=== PATIENT | male | born 1980 | race Caucasian/White ===

== ENCOUNTER 2017-04-02 18:05 | Emergency (ER) | payer OTHER ==
[2017-04-02] MEDS ORDERED: Bacitracin/Neomycin/Polymyxin B Oint 0.9 GM U/D Packet TOP ONE (19:01)
--- NOTE | 2017-04-02 19:02 | EDM.PDOC ---
ED HPI GENERAL MEDICAL PROBLEM - General Chief Complaint: Laceration Stated Complaint: L) thumb cut Time Seen by Provider: 04/02/17 18:36 Source of Information: Reports: Patient History Limitations: Reports: No Limitations - History of Present Illness INITIAL COMMENTS - FREE TEXT/NARRATIVE: Patient is a 36-year-old who cut himself with a knife on his left thumb whie working [employer]. 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 (see below) Other Treatments CELL REPAIRER: pressure held - Related Data Allergies Allergy/AdvReac Type Severity Reaction Status Date / Time No Known Allergies Allergy Verified 04/02/17 18:08 Home Meds: Home Meds Cephalexin [Keflex] 500 mg PO Q6HR 7 Days #16 cap 04/02/17 [Rx] Social & Family History - Tobacco Use Smoking Status *Q: Former Smoker Years of Tobacco use: 16 Packs/Tins Daily: 1 Used Tobacco, but Quit: Yes Month Tobacco Last Used: 2012 Second Hand Smoke Exposure: No - Caffeine Use Caffeine Use: Reports: Coffee, Soda - Recreational Drug Use Recreational Drug Use: No ED ROS GENERAL - Review of Systems Review Of Systems: See Below Constitutional: Reports: No Symptoms HEENT: Reports: Contact Lenses Respiratory: Reports: No Symptoms Cardiovascular: Reports: No Symptoms Endocrine: Reports: No Symptoms GI/Abdominal: Reports: No Symptoms : Reports: No Symptoms Musculoskeletal: Reports: No Symptoms Skin: Reports: Wound (Left hand laceration) Neurological: Reports: No Symptoms Psychiatric: Reports: No Symptoms Hematologic/Lymphatic: Reports: No Symptoms Immunologic: Reports: No Symptoms ED EXAM, SKIN/RASH Exam: See Below Exam Limited By: No Limitations General Appearance: Alert, WD/WN, No Apparent Distress Eye Exam: Bilateral Eye: EOMI, PERRL Ears: Normal External Exam, Normal Canal, Hearing Grossly Normal, Normal TMs Nose: Normal Inspection, Normal Mucosa, No Blood Throat/Mouth: Normal Inspection, Normal Lips, Normal Teeth, Normal Gums, Normal Oropharynx, Normal Voice, No Airway Compromise Head: Atraumatic, Normocephalic Neck: Normal Inspection, Supple, Non-Tender, Full Range of Motion Respiratory/Chest: No Respiratory Distress, Lungs Clear, Normal Breath Sounds, No Accessory Muscle Use, Chest Non-Tender Cardiovascular: Normal Peripheral Pulses, Regular Rate, Rhythm, No Edema, No Gallop, No JVD, No Murmur, No Rub GI/Abdominal: Normal Bowel Sounds, Soft, Non-Tender, No Organomegaly, No Distention, No Abnormal Bruit, No Mass (Male) Exam: Deferred Rectal (Males) Exam: Deferred Back Exam: Normal Inspection, Full Range of Motion, NT Extremities: Normal Inspection, Normal Range of Motion, Non-Tender, No Pedal Edema, Normal Capillary Refill Neurological: Alert, Oriented, CN II-XII Intact, Normal Cognition, Normal Gait, Normal Reflexes, No Motor/Sensory Deficits Psychiatric: Normal Affect, Normal Mood Skin: Wound/Incision (Laceration left thumb approximately 2 cm V-shaped) Location, Skin: Upper Extremity, Left Lymphatic: No Adenopathy ED SKIN PROCEDURES - Laceration/Wound Repair Left Dorsal Appearance: Linear Distal NVT: Neuro & Vascular Intact, No Tendon Injury Anesthetic Type: Local Local Anesthesia - Lidocaine (Xylocaine): 1% Plain Local Anesthetic Volume: 3cc Skin Prep: Chlorhexidine (Hibiciens) Exploration/Debridement/Repair: Wound Explored, No Foreign Material Found Closed with: Sutures Suture Size: 4-0 Suture Type: Nylon Departure - Departure Time of Disposition: 19:12 Disposition: Home, Self-Care 01 Condition: Good Clinical Impression: Laceration of thumb with delay in treatment Qualifiers: Encounter type: initial encounter Laterality: left Qualified Code(s): S61.012A - Laceration without foreign body of left thumb without damage to nail, initial encounter - Discharge Information Instructions: Laceration Care, Adult, [id number] Care Plan Goals: Patient instructed to keep clean use soap and water also to return in 10 days for suture removal
== END 2017-04-02 19:27 | disposition home or self-care (01) ==
LOC: LL.ED 18:05
DX: S61.012A Laceration without foreign body of left thumb without damage to nail, initial encounter (principal); W26.0XXA Contact with knife, initial encounter; Z87.891 Personal history of nicotine dependence
CPT/HCPCS: 12001; 99283

== ENCOUNTER 2017-12-27 07:36 | Emergency (ER) | payer SELFPAY ==
[2017-12-27] MEDS ORDERED: Ketorolac 30 MG/ML SDV IVPUSH ONE (08:18)
[2017-12-27] MEDS ORDERED: Ondansetron 4 MG/2 ML SDV IVPUSH ONE (08:18)
[2017-12-27] MEDS ORDERED: HYDROmorphone 1 MG/ML Syringe IVPUSH ONE ×3 (08:18→09:54)
[2017-12-27] MEDS ORDERED: Ondansetron 4 MG/2 ML SDV ONE (08:21)
[2017-12-27 08:26] LABS: CHLORIDE,CL 106 mmol/L (98-107); SODIUM,NA 142 mmol/L (136-145)
[2017-12-27] MEDS ORDERED: Sodium Chloride 0.9% 1,000 ML IV ONE ×2 (08:31→09:50)
[2017-12-27] MEDS ORDERED: Tamsulosin 0.4 MG Cap.ER PO ONE (08:31)
--- NOTE | 2017-12-27 08:57 | EDM.PDOC ---
ED HPI GENERAL MEDICAL PROBLEM - General Chief Complaint: Flank Pain Stated Complaint: left flank pain Time Seen by Provider: 12/27/17 08:22 Source of Information: Reports: Patient History Limitations: Reports: No Limitations - History of Present Illness INITIAL COMMENTS - FREE TEXT/NARRATIVE: Patient noted left sided flank pain beginning around 5am. Thought it was muscular in nature. Started to worsen significantly around 7:30. Had brief discomfort in same area yesterday but "walked it off". Nausea and emesis present. No bowel changes. No fevers/chills. No hematuria or urinary changes. No other pain complaints. No other reported changes/symptoms. Left Flank Pain Score (Numeric/FACES): 7 - Related Data Allergies Allergy/AdvReac Type Severity Reaction Status Date / Time No Known Allergies Allergy Verified 04/02/17 18:08 Home Meds: Home Meds Acetaminophen/HYDROcodone [[place] 325-5 MG] 1 tab PO Q6H PRN #10 tablet 12/27/17 [Rx] Ondansetron [Zofran ODT] 4 mg PO Q6H PRN #8 tab.dis 12/27/17 [Rx] Tamsulosin HCl [Flomax] 0.4 mg PO BID #4 capsule 12/27/17 [Rx] Social & Family History - Tobacco Use Smoking Status *Q: Former Smoker Years of Tobacco use: 15 Packs/Tins Daily: 1 Used Tobacco, but Quit: Yes Month/Year Tobacco Last Used: 10 - Caffeine Use Caffeine Use: Reports: Coffee, Energy Drinks, Soda, Tea - Alcohol Use Alcohol Use History: No Alcohol Use in Last Twelve Months: No Alcohol Use Comment: Quit drinking 6 years ago - Recreational Drug Use Recreational Drug Use: No ED ROS GENERAL - Review of Systems Review Of Systems: ROS reveals no pertinent complaints other than HPI. ED EXAM, RENAL/ - Physical Exam Exam: See Below Exam Limited By: No Limitations General Appearance: Alert, WD/WN, Moderate Distress Eye Exam: Bilateral Eye: EOMI, PERRL Nose: No: Nasal Deformity, Nasal Swelling, Nasal Drainage Throat/Mouth: Normal Lips, Normal Voice, No Airway Compromise Head: Atraumatic, Normocephalic Neck: Normal Inspection, Supple, Full Range of Motion Respiratory/Chest: No Respiratory Distress, Lungs Clear, Normal Breath Sounds, No Accessory Muscle Use Cardiovascular: Normal Peripheral Pulses, Regular Rate, Rhythm, No Edema, No Murmur GI/Abdominal: Normal Bowel Sounds, Soft, Non-Tender, No Distention, No Mass (Male) Exam: Deferred Rectal (Males) Exam: Deferred Back Exam: No: CVA Tenderness (L), CVA Tenderness (R), Muscle Spasm, Paraspinal Tenderness, Vertebral Tenderness Extremities: Normal Inspection, Normal Capillary Refill Neurological: Alert, Oriented, Normal Cognition, Normal Gait, No Motor/Sensory Deficits Psychiatric: Anxious Skin Exam: Warm, Dry, Intact, Normal Color Course - Vital Signs Last Recorded V/S: Last Vital Signs Temp 36.1 C 12/27/17 07:37 Pulse 70 12/27/17 08:45 Resp 16 12/27/17 08:45 BP 153/97 H 12/27/17 08:45 Pulse Ox 99 12/27/17 08:45 - Orders/Labs/Meds Orders: Active Orders 24 hr Category Date Time Status Abdomen Pelvis wo Cont [CT] Stat Exams 12/27/17 08:22 Taken UA W/MICROSCOPIC [URIN] Stat Lab 12/27/17 08:22 Ordered Labs: Laboratory Tests 12/27/17 12/27/17 Range/Units 07:55 07:55 WBC 7.7 (4.0-10.2) K/uL RBC 5.55 H (4.33-5.41) M/uL Hgb 16.4 (13.1-16.8) g/dL Hct 47.3 (39.0-49.0) % MCV 85.2 (84.0-98.0) fL MCH 29.5 (28.2-33.3) pg MCHC 34.7 (31.7-36.0) g/dL RDW 12.7 (11.2-14.1) % Plt Count 219 (150-350) K/uL Neut % (Auto) 52.0 (45.0-80.0) % Lymph % (Auto) 34.5 (10.0-50.0) % [place] % (Auto) 8.6 (2.0-14.0) % Eos % (Auto) 4.6 (0.0-5.0) % Baso % (Auto) 0.3 (0.0-2.0) % Neut # (Auto) 4.00 (1.40-7.00) K/uL Lymph # (Auto) 2.65 (0.50-3.50) K/uL [place] # (Auto) 0.66 (0.00-1.00) K/uL Eos # (Auto) 0.35 (0.00-0.50) K/uL Baso # (Auto) 0.02 (0.00-0.20) K/uL Sodium 142 (136-145) mmol/L Potassium 4.0 (3.5-5.1) mmol/L Chloride 106 (98-107) mmol/L Carbon Dioxide 26.3 (21.0-32.0) mmol/L BUN 16 (7-18) mg/dL Creatinine 1.02 (0.51-1.17) mg/dL Est Cr Clr Drug Dosing 95.00 mL/min Estimated GFR (MDRD) > 60 mL/min Glucose 124 H (74-106) mg/dL Calcium 9.0 (8.5-10.1) mg/dL Total Bilirubin 0.7 (0.2-1.0) mg/dL AST 19 (15-37) U/L ALT 40 (12-78) U/L Alkaline Phosphatase 92 (46-116) IU/L Total Protein 7.6 (6.4-8.2) g/dL Albumin 4.1 (3.4-5.0) g/dL Meds: Medications Discontinued Medications Generic Name Dose Route Start Last Admin Trade Name Freq PRN Reason Stop Dose Admin Diazepam 5 mg 12/27/17 08:59 12/27/17 09:02 Valium. PO 12/27/17 09:00 5 mg ONETIME ONE Administration Hydromorphone HCl 1 mg 12/27/17 08:18 12/27/17 08:25 Dilaudid IVPUSH 12/27/17 08:19 1 mg ONETIME ONE Administration Hydromorphone HCl 1 mg 12/27/17 08:49 12/27/17 08:53 Dilaudid IVPUSH 12/27/17 08:50 1 mg ONETIME ONE Administration Hydromorphone HCl 1 mg 12/27/17 09:54 12/27/17 10:08 Dilaudid IVPUSH 12/27/17 09:55 1 mg ONETIME ONE Administration Sodium Chloride 1,000 mls @ 999 mls/hr 08/28/18 08:31 12/27/17 08:44 Normal Saline IV 12/27/17 09:31 999 mls/hr .BOLUS ONE Administration Sodium Chloride 1,000 mls @ 999 mls/hr 12/27/17 09:50 12/27/17 09:49 Normal Saline IV 12/27/17 10:50 999 mls/hr .BOLUS ONE Administration Sodium Chloride 1,000 mls @ 250 mls/hr 12/27/17 11:00 12/27/17 10:55 Normal Saline IV 250 mls/hr ASDIRECTED YENI Administration Ketorolac Tromethamine 30 mg 12/27/17 08:18 12/27/17 08:27 Toradol IVPUSH 12/27/17 08:19 30 mg ONETIME ONE Administration Ondansetron HCl 4 mg 12/27/17 08:18 12/27/17 08:22 Zofran IVPUSH 12/27/17 08:19 4 mg ONETIME ONE Administration Ondansetron HCl Confirm 12/27/17 08:21 12/27/17 08:30 Zofran Administered 12/27/17 08:22 Not Given Dose 4 mg .ROUTE .STK-MED ONE Tamsulosin HCl 0.4 mg 12/27/17 08:31 12/27/17 08:33 Flomax PO 12/27/17 08:32 0.4 mg ONETIME ONE Administration - Radiology Interpretation CT Results Date: 12/27/17 CT Results Time: 09:15 (2-3mm stone near left distal ureter/may already be in bladder) - Re-Assessments/Exams Free Text/Narrative Re-Assessment/Exam: 12/27/17 09:17 Patient's pain improved with Toradol and Dilaudid. Nausea improved with Zofran. Flomax and PO Valium also given. CT showed 2x3mm stone as stated above. Also showed fat containing inguinal hernia on the right as well as prostate calcifications and early diverticuli in the sigmoid colon. 12/27/17 12:53 No urge to void despite two liters of NS. Additional fluid ordered. Has had intermittent spasms of pain but overall feels improved. Would like to go home and see if he can pass the stone on his own. Precautions reviewed. To return to ER as needed if symptoms worsen again. Otherwise to follow up with primary provider to have stone tested (when passed) and discuss any additional testing or interventions as needed. Departure - Departure Time of Disposition: 13:30 Disposition: Home, Self-Care 01 Condition: Good Clinical Impression: Ureteric colic - Discharge Information *PRESCRIPTION DRUG MONITORING PROGRAM REVIEWED*: Not Applicable *COPY OF PRESCRIPTION DRUG MONITORING REPORT IN PATIENT HUNG: Not Applicable Prescriptions: Acetaminophen/HYDROcodone [[place] 325-5 MG] 1 tab PO Q6H PRN #10 tablet PRN Reason: Pain Ondansetron [Zofran ODT] 4 mg PO Q6H PRN #8 tab.dis PRN Reason: Nausea Tamsulosin HCl [Flomax] 0.4 mg PO BID #4 capsule Instructions: Kidney Stones, [id number] Referrals: PCP,Unknown [Primary Care Provider] - Forms: ED Department Discharge Additional Instructions: Given the size of you kidney stone, it SHOULD be able to pass on its own. Strain your urine with the strainer and try to retrieve the stone when it does pass. Take this stone to your primary provider/clinic so that it can be sent in for testing to see what kind if kidney stone it is. The treatment plan can vary depending on the kind of kidney stone you have. Follow up as needed with your provider. Rest today. You can take the pain medication we gave one one tablet every 4-6 hours as needed (with food/water). You will have a nausea pill as well plus another to help you urinate a bit better so that stone can pass easier. If you get into trouble at home with increased pain/nausea that the above meds do not help, return to the ER. If pain is not improved/stone not passed within 2 days then you should follow up in clinic or ER for recheck. - My Orders Last 24 Hours: My Active Orders 12/27/17 08:22 Abdomen Pelvis wo Cont [CT] Stat UA W/MICROSCOPIC [URIN] Stat - Assessment/Plan Last 24 Hours: My Active Orders 12/27/17 08:22 Abdomen Pelvis wo Cont [CT] Stat UA W/MICROSCOPIC [URIN] Stat
[2017-12-27] MEDS ORDERED: Diazepam 5 MG Tab PO ONE (08:59)
[2017-12-27] MEDS ORDERED: Sodium Chloride 0.9% 1,000 ML IV SCH (11:00)
== END 2017-12-27 14:10 | disposition home or self-care (01) ==
LOC: LL.ED 07:36
DX: N20.1 Calculus of ureter (principal); Z87.891 Personal history of nicotine dependence
CPT/HCPCS: 36415; 74176; 80053; 85025; 96361; 96374; 96375; 96376; 99284; A9270; J1170; J1885; J2405; J7030